=== PATIENT | male | born 1945 | race Caucasian/White ===

== ENCOUNTER 2025-04-16 12:39 | Outpatient (CLI) | payer MEDICARE, BC, SELFPAY | END 2025-04-16 12:40 | disposition home or self-care (01) | LOC: AMB 04-28 02:13 | PROVIDERS: PCP Family Medicine; Visit Provider Family Medicine | DX: R06.82 Tachypnea, not elsewhere classified (principal); M79.672 Pain in left foot | CPT/HCPCS: A0425; A0427 ==